=== PATIENT | female | born 2000 | race Caucasian/White ===

== ENCOUNTER → 2020-03-20 09:09 | Outpatient (BNVA) | payer OTHER, SELFPAY | PROVIDERS: Visit Provider Advanced Practice Midwife | DX: Z30.46 Encounter for surveillance of implantable subdermal contraceptive (principal) | CPT/HCPCS: 99212 ==

== ENCOUNTER 2020-05-20 15:19 | Outpatient (REF) | payer OTHER, SELFPAY | END 2020-05-20 15:20 | disposition home or self-care (01) | LOC: HO.LAB 15:19 | PROVIDERS: Visit Provider Internal Medicine | DX: Z20.828 Contact with and (suspected) exposure to other viral communicable diseases (principal) | CPT/HCPCS: 36415; C9803; U0003 ==

== ENCOUNTER 2021-02-12 09:36 | Outpatient (REF) | payer OTHER, SELFPAY ==
[2021-02-12 15:41] LABS: CT PCR NOT DETECTED (Not Detect.); NG PCR NOT DETECTED (Not Detect.)
[2021-02-13 09:30] LABS: BV Int Neg Control Negative (Negative); BV Int Pos Control Positive (Positive)
[2021-03-03 06:21] LABS: HPV 16 RNA NOT DETECTED (NOT DETECTED); HPV mRNA E6/E7 rflx Detected (Not Detected)
== END 2021-02-12 09:37 | disposition home or self-care (01) ==
LOC: HO.LAB 09:36
PROVIDERS: Visit Provider Advanced Practice Midwife
DX: Z01.419 Encounter for gynecological examination (general) (routine) without abnormal findings (principal); E66.9 Obesity, unspecified; Z68.38 Body mass index [BMI] 38.0-38.9, adult; Z20.2 Contact with and (suspected) exposure to infections with a predominantly sexual mode of transmission
CPT/HCPCS: 87480; 87491; 87510; 87591; 87624; 87625; 87660; 88142

== ENCOUNTER 2021-08-20 09:21 | Emergency (ER) | payer OTHER, SELFPAY ==
--- NOTE | ~2021-08-20 | XR_ITS ---
EXAMINATION: XR CHEST CLINICAL INFORMATION: Cough, shortness of breath and chest pain. COMPARISON: None TECHNIQUE: Frontal view of the chest was obtained. FINDINGS: No significant abnormality is noted involving the heart, lungs, mediastinum, bony thorax or soft tissues. XR/XR chest 1V IMPRESSION: No acute cardiopulmonary process.
[2021-08-20 09:37] VITALS: BP 121/87; PULSE 89; RESP 18; TEMP 36.7; O2SAT 99; BMI 38.0
[2021-08-20 10:42] LABS: COVID-19 Test Negative (Negative); IDNOW Serial# 16C4AD1C
[2021-08-20] MEDS: Ondansetron ODT 4 MG TAB.RAPDIS TRANSLINGU (10:46)
[2021-08-20 10:49] LABS: Appearance Urine HAZY; Color Urine YELLOW; Glucose Urine UA NEG (NEG); Leukocyte Esterase Urine NEG (NEG); Nitrite Urine NEG (NEG); Specific Gravity - Urine >= 1.030 (1.005-1.025); UACC Culture Trigger NO; Urine Blood 2+ (NEG); Urine Ketones 5 MG/DL (NEG); Urine Protein TRACE MG/DL (NEG-TRACE)
--- NOTE | 2021-08-20 11:00 | PC.NURSE ---
PT GIVEN PO CHALLENGE.
[2021-08-20 11:01] LABS: Mucus Urine 3+ /LPF; Squamous Epithelial Cell Urine 2+ /LPF
[2021-08-20 11:02] LABS: WBC Urine 0-2 /HPF (0-4)
[2021-08-20 11:04] LABS: UPreg QC Valid YES; Urine Pregnancy NEGATIVE (NEGATIVE)
[2021-08-20 11:13] LABS: IDNOW Serial# 55D5AD1C; Influenza A Positive (Negative); Influenza B2 Negative (Negative)
--- NOTE | 2021-08-20 11:17 | PC.NURSE ---
PT TOLERATED PO CHALLENGE, NO VOMITING AT THIS TIME.
--- NOTE | 2021-08-20 11:30 | ED_ITS ---
HPI - General Adult General Chief complaint: General Medical Stated complaint: lost voice Time Seen by Provider: 08/20/21 09:59 Source: patient Mode of arrival: ambulatory History of Present Illness HPI narrative: 20-year-old female with no significant past medical history presenting to the ED complaining of subjective fever, chills, nausea, vomiting, decreased p.o. intake, nonproductive cough, body aches/myalgias, sore throat x4 days. Admits the stomach bug has been going around her place of employment. Reports has been able to tolerate p.o. water however decreased food. Also reports chest discomfort when coughing, and mild SOB. Denies diarrhea, constipation, recent travel, abdominal pain, pedal edema. Has been taking OTC medications with relief Onset (ago): day(s) Related Data Home Medications Medication Instructions Recorded Confirmed etonogestrel 68 mg subdermal SUBDERMAL 03/20/20 implant Previous Rx's Medication Instructions Recorded metronidazole 500 mg tablet 500 mg PO BID 7 Days #14 tab 02/16/21 (Flagyl) fluticasone propionate 50 2 spray INTRANASAL DAILY #16 g 08/20/21 mcg/actuation nasal spray,suspension (Flonase Allergy Relief) ondansetron 4 mg disintegrating 4 mg PO Q8H PRN #10 tab 08/20/21 tablet Allergies Allergy/AdvReac Type Severity Reaction Status Date / Time No Known Allergies Allergy Verified 02/12/21 10:33 Review of Systems Review of Systems: Constitutional: +subj Fever, +Chills ENT/Mouth: No Ear Pain, + Nasal Congestion, No Sinus Pain, No Hoarseness, + sore throat, No Rhinorrhea, No Swallowing Difficulty Cardiovascular: + Chest Pain when couging, +mild SOB Respiratory: + Cough, No Sputum, No Wheezing Gastrointestinal: + Nausea, + Vomiting, No Diarrhea, No Constipation, No Abdominal pain Genitourinary: No Dysuria, No Urinary Frequency, No Hematuria, No Urgency, No Flank Pain Musculoskeletal: No joint pain, + Myalgias, No Joint Swelling Skin: No Skin Lesions, No rash Neuro: No Weakness, No Numbness, No Paresthesias Yes all other systems are reviewed and are negative PMFSH Past Medical History Attestation statement: The following information was validated with the patient. Medical History Obesity Family History Family History Maternal Grandmother History of breast cancer Social History Social History Alcohol intake: current Alcohol intake frequency: holidays/special occasions only Advance Directives: No Advance Directives Information Provided: No Patient : No Sexual orientation: Straight/Heterosexual Gender identity: Female Physical Exam ED Vital Signs: Vital Signs - 24 hr 08/20/21 09:37 Temperature 98.0 F Pulse Rate 89 Respiratory Rate 18 Blood Pressure 121/87 Pulse Oximetry 99 BMI result Body Mass Index 38.0 Const General: cooperative, healthy appearing, well developed, alert and awake Orientation/consciousness: patient oriented x3 Limitations: no limitations HENMT Head: Yes normal to inspection Ears: hearing grossly normal bilaterally, external ears normal and TM's normal bilaterally General nose exam: Normal external nose present Face and sinus: Yes normal facial exam Throat: Yes posterior oropharynx normal, Yes tonsils normal, Yes uvula midline, No peritonsillar mass and No uvula laterally displaced Eyes General: appearance normal, both eyes and all related structures EOM: EOMs intact bilaterally Neck Neck: Yes normal visual inspection and Yes no meningeal signs Resp Effort & Inspection: normal respiratory effort and no respiratory distress Auscultation: clear to auscultation bilaterally, no rales, no rhonchi and no wheezes Cardio Rate: regular rate Heart sounds: S1 normal heart sound present and S2 normal heart sound present GI Inspection: Yes normal to inspection Palpation (GI): Soft to palpation, nontender, no guarding and not rigid General: Yes no CVA tenderness Back/Spine/Pelvis Back: no CVA tenderness Skin Rashes: no rashes Wounds: no wounds Neuro General: patient oriented x3 and no meningeal signs Gait exam (Neuro): Normal gait present Extrem General: Yes normal to inspection and Yes no pedal edema Course Course Course Narrative: -1130--patient tolerating p.o. Kalina Willa without nausea or vomiting. Influenza A positive. COVID-19 negative. CXR unremarkable. UA with RBCs/not infected, discussed these results with patient and need close follow-up with PCP and repeat UA Medical Decision Making MDM Narrative Medical decision making narrative: 20-year-old female with no significant past medical history presenting to the ED complaining of subjective fever, chills, nausea, vomiting, decreased p.o. intake, nonproductive cough, body aches/myalgias, sore throat x4 days. On exam vital signs stable, NAD/nontoxic-appearing, exam nonfocal parents concern for viral syndrome including COVID-19/influenza versus norovirus/gastroenteritis. Low concern for ACS/PE or pneumonia Plan: COVID-19 testing/influenza testing, CXR, sublingual Zofran, p.o. challenge Medical Records Medical records reviewed: Yes I reviewed the patient's medical records. Lab Data Lab results reviewed: Yes I reviewed the patient's lab results. Labs: Lab Results 08/20/21 08/20/21 08/20/21 Range/Units 10:09 10:09 10:32 Urine Color YELLOW Urine Appearance HAZY Urine pH 6.0 (5.0-8.0) Ur Specific [place] >= 1.030 H (1.005-1.025) Urine Protein TRACE (NEG-TRACE) MG/DL Urine Glucose (UA) NEG (NEG) MG/DL Urine Ketones 5 (NEG) MG/DL Urine Blood 2+ H (NEG) Urine Nitrite NEG (NEG) Ur Leukocyte Esterase NEG (NEG) Urine RBC 10-14 H (0) /HPF Urine WBC 0-2 (0-4) /HPF Ur Squamous Epith Cells 2+ /LPF Urine Bacteria NONE /LPF Urine Mucus 3+ /LPF Urine Test (NEGATIVE) COVID-19 (JAY) Negative (Negative) COVID-19 Clin Com See Note Influenza Type A (RHYS) Positive A (Negative) Influenza Type B (RHYS) Negative (Negative) Influenza A & B Note See Note 08/20/21 Range/Units 10:32 Urine Color Urine Appearance Urine pH (5.0-8.0) Ur Specific [place] (1.005-1.025) Urine Protein (NEG-TRACE) MG/DL Urine Glucose (UA) (NEG) MG/DL Urine Ketones (NEG) MG/DL Urine Blood (NEG) Urine Nitrite (NEG) Ur Leukocyte Esterase (NEG) Urine RBC (0) /HPF Urine WBC (0-4) /HPF Ur Squamous Epith Cells /LPF Urine Bacteria /LPF Urine Mucus /LPF Urine Test NEGATIVE (NEGATIVE) COVID-19 (JAY) (Negative) COVID-19 Clin Com Influenza Type A (RHYS) (Negative) Influenza Type B (RHYS) (Negative) Influenza A & B Note Discharge Plan Discharge Clinical Impression: Influenza A Patient Disposition: Home, Self-Care Instructions: Influenza (DC) Additional Instructions: You have the flu. You are contagious, please wash her hands and wear mask. Flonase is a nasal decongestion, take as needed. Zofran as antinausea medication, take as needed for nausea/vomiting. In addition take Tylenol and Motrin for body aches/fever and pain. Your urine had blood in it, please follow-up with her primary care doctor for repeat urine Your chest x-ray was unremarkable. You tested negative for COVID-19. If her symptoms persist or worsen, your unable to eat or drink, develops fever unresolved with medications please return to the emergency department Prescriptions: New ondansetron 4 mg tablet,disintegrating 4 mg PO Q8H PRN (Reason: nausea and vomiting) Qty: 10 0RF fluticasone propionate [Flonase Allergy Relief] 50 mcg/actuation spray,suspension 2 spray intranasal DAILY Qty: 16 0RF Rx Instructions: administer into each nostril No Action metronidazole [Flagyl] 500 mg tablet 500 mg PO BID 7 Days Qty: 14 0RF Rx Instructions: Take with food, Avoid alcohol and vinegar products Nexplanon 68 mg implant subdermal 0RF Referrals: Obdulia Tabares MD [Primary Care Provider] - 1 week Stand Alone Forms: Work/School Release
== END 2021-08-20 11:57 | disposition home or self-care (01) ==
PROVIDERS: Physician Assistant; Emergency Provider Emergency Medicine Emergency Medical Services; PCP Pediatrics
DX: J11.1 Influenza due to unidentified influenza virus with other respiratory manifestations (principal); Z20.822 Contact with and (suspected) exposure to COVID-19; R50.9 Fever, unspecified
CPT/HCPCS: 71045; 81001; 81025; 87502; 87635; 99283

== ENCOUNTER → 2021-09-07 15:14 | Outpatient (BNVA) | payer OTHER, SELFPAY | PROVIDERS: PCP Pediatrics; Visit Provider Advanced Practice Midwife | DX: Z30.40 Encounter for surveillance of contraceptives, unspecified (principal) | CPT/HCPCS: 99212 ==

== ENCOUNTER → 2021-11-04 15:37 | Outpatient (BNVA) | payer OTHER, SELFPAY | PROVIDERS: PCP Pediatrics; Visit Provider Advanced Practice Midwife | DX: Z30.46 Encounter for surveillance of implantable subdermal contraceptive (principal) | CPT/HCPCS: 11982 ==

== ENCOUNTER 2021-12-30 15:31 | Outpatient (REF) | payer MEDICAID, SELFPAY ==
[2021-12-31 06:41] LABS: CT PCR NOT DETECTED (Not Detect.); NG PCR NOT DETECTED (Not Detect.)
[2021-12-31 09:42] LABS: BV Int Neg Control Negative (Negative)
[2021-12-31 09:43] LABS: BV Int Pos Control Positive (Positive)
== END 2021-12-30 15:32 | disposition home or self-care (01) ==
LOC: HO.LAB 15:31
PROVIDERS: Visit Provider Advanced Practice Midwife
DX: O20.0 Threatened abortion (principal); O20.9 Hemorrhage in early pregnancy, unspecified
CPT/HCPCS: 36415; 84702; 87480; 87491; 87510; 87591; 87660; 99212

== ENCOUNTER 2021-12-30 15:38 | Outpatient (REF) | payer MEDICAID, SELFPAY ==
[2021-12-30 17:32] LABS: HCG Quantitative 2055 mIU/mL
== END 2021-12-30 15:39 | disposition home or self-care (01) ==
LOC: HO.LAB 15:38
PROVIDERS: PCP Family Medicine; Visit Provider Advanced Practice Midwife
DX: O20.0 Threatened abortion (principal); O20.9 Hemorrhage in early pregnancy, unspecified
CPT/HCPCS: 36415; 84702

== ENCOUNTER 2022-01-06 09:55 | Emergency (ER) | payer MEDICAID, SELFPAY ==
[2022-01-06 10:04] VITALS: BP 129/77; PULSE 86; RESP 19; TEMP 36.6; O2SAT 99; BMI 38.4
[2022-01-06 12:36] LABS: Appearance Urine Cloudy; Color Urine Yellow; Glucose Urine UA Negative (Negative); Leukocyte Esterase Urine Trace (Negative); Nitrite Urine Negative (Negative); Specific Gravity - Urine 1.025 (1.005-1.025); Urine Blood Negative (Negative); Urine Ketones Trace mg/dL (Negative); Urine Protein Trace mg/dL (Neg-Trace)
[2022-01-06 12:41] LABS: Bacteria Urine 4+ (None Seen); Hyaline Casts Urine 0-2 /LPF (0-2); WBC Urine 0-5 /HPF (0-5)
[2022-01-06 12:44] LABS: Anion Gap 12 (12-20); Blood Urea Nitrogen 8 mg/dL (9-16); Calcium 9.7 mg/dL (8.4-10.2); Carbon Dioxide 25 mmol/L (22-29); Chloride 104 mmol/L (96-108); Creatinine Clr Calc Pharmacy 156.7; Estimated Glomerular Filt Rate > 60; Glucose Random 78 mg/dL (60-115); Potassium 4.3 mmol/L (3.3-5.1); Sodium 137 mmol/L (135-145)
[2022-01-06 12:52] LABS: HCG Quantitative 11060 mIU/mL
[2022-01-06 15:17] VITALS: BP 118/60; PULSE 79; RESP 18; TEMP 37; O2SAT 99
--- NOTE | 2022-01-06 15:18 | ECG_ITS ---
Test Reason : DIZZINESS Blood Pressure : / mmHG Vent. Rate : 069 BPM Atrial Rate : 069 BPM P-R Int : 150 ms QRS Dur : 074 ms QT Int : 384 ms P-R-T Axes : 021 028 026 degrees QTc Int : 411 ms Normal sinus rhythm with sinus arrhythmia Normal ECG When compared with ECG of 01-AUG-2012 20:23, PREVIOUS ECG IS PRESENT No significant change was found Referred By: Generic ED Physician Electronically Signed By:TERRANCE SHETTY
--- NOTE | 2022-01-06 15:18 | PC.NURSE ---
worsening symptoms reports to pt experience person while waiting for bed. EKG ordered per protocol. POC to be checked.
[2022-01-06 15:28] LABS: Glucose, Whole Blood 102 mg/dL (60-115)
--- NOTE | 2022-01-06 15:57 | PC.NURSE ---
Late entry: POC 102
[2022-01-06 16:29] LABS: MANUAL DIFF FLAG NO
[2022-01-06 16:31] LABS: Basophils Absolute Auto 0.1 X10*3/uL (0.0-0.2); Basophils Percent Auto 0.6 % (0-2); Eosinophils Absolute Auto 0.2 X10*3/uL (0.0-0.4); Eosinophils Percent Auto 2.2 % (0-4); Hematocrit 36.4 % (37.0-47.0); Hemoglobin 12.4 g/dl (12.0-16.0); Imm Gran Abs Auto 0.02 X10*3/uL (0.00-0.03); Imm Gran Pct Auto 0.2 % (0.0-0.4); Lymphocytes Absolute Auto 1.9 X10*3/uL (1.2-4.9); Lymphocytes Percent Auto 21.8 % (20-40); Mean Corpuscular HGB Conc 34.1 g/dl (31.0-35.0); Mean Corpuscular Hemoglobin 30.3 pg (27.0-33.0); Mean Platelet Volume 9.6 fL (9.4-12.3); Monocytes Absolute Auto 0.9 X10*3/uL (0.1-1.2); Monocytes Percent Auto 10.6 % (2-11); Neutrophils Absolute Auto 5.7 x10*3/uL (2.0-8.3); Neutrophils Percent Auto 64.6 % (45-73); Platelet Count 374 X10*3/uL (160-400); Red Blood Count 4.09 X10*6/uL (4.20-5.50); Red Cell Distribution Width 11.9 % (11.0-16.0); White Blood Count 8.8 X10*3/uL (4.8-10.8)
== END 2022-01-06 21:03 | disposition left against medical advice (07) ==
PROVIDERS: Emergency Provider Emergency Medicine; PCP Family Medicine
DX: O21.0 Mild hyperemesis gravidarum (principal); Z3A.08 8 weeks gestation of pregnancy
CPT/HCPCS: 36415; 80048; 81001; 82947; 84702; 85025; 93005; 99283

== ENCOUNTER 2022-01-15 15:04 | Outpatient (REF) | payer MEDICAID, SELFPAY ==
--- NOTE | ~2022-01-15 | US_ITS ---
EXAMINATION: US OBSTETRICAL ULTRASOUND CLINICAL INFORMATION: Irregular menstruation. COMPARISON: None. LMP: November 09, 2021.. Gestational age by maternal dates is 9 weeks 4 days. Estimated date of delivery by maternal dates is August 16, 2022. TECHNIQUE: Ultrasound of the maternal pelvis is performed using transabdominal and transvaginal transducers. Transvaginal imaging is performed due to inadequate visualization transabdominally. M-mode Doppler is also performed. FINDINGS: There is a single intrauterine gestational sac with visible yolk sac, embryo/fetus, and cardiac activity. There is a suggestion of a hypoechoic, crescentic subchorionic bleed measuring 1.9 x 1.8 x 0.6 cm. HR: 156 beats per minute. CRL (crown rump length): 1.3 cm (7 weeks 4 days +/- 4 days). DORETHA (estimated date of delivery): August 30, 2022 +/- 4 days. MATERNAL ADNEXA: The right maternal ovary measures 2.9 x 2.8 x 1.9 cm. The left maternal ovary measures 3.1 x 2.0 x 1.7 cm. No significant maternal adnexal mass is identified. Trace free pelvic fluid, nonspecific. US/US OB pelvic and transvaginal IMPRESSION: 1. Single intrauterine gestation with ultrasound gestational age of 7 weeks 0 days +/- 4 days. 2. Estimated date of delivery is August 30, 2022 +/- 4 days. 3. Suspect 1.9 x 1.8 x 0.6 cm subchorionic bleed
== END 2022-01-15 15:05 | disposition home or self-care (01) ==
LOC: HO.US 15:04
PROVIDERS: Visit Provider Advanced Practice Midwife
DX: Z34.91 Encounter for supervision of normal pregnancy, unspecified, first trimester (principal); Z3A.09 9 weeks gestation of pregnancy
CPT/HCPCS: 76801; 76817

== ENCOUNTER 2022-02-03 16:18 | Outpatient (REF) | payer MEDICAID, SELFPAY ==
--- NOTE | ~2022-02-03 | US_ITS ---
EXAMINATION: US OBSTETRICAL ULTRASOUND CLINICAL INFORMATION: Hemorrhage in early COMPARISON: Previous OB ultrasound 01/15/2022. LMP: 10/20/2021. TECHNIQUE: Transabdominal and transvaginal first trimester OB ultrasound FINDINGS: There is a single intrauterine gestational sac with visible yolk sac, embryo/fetus, and cardiac activity. There is hypoechoic area adjacent to the gestational sac questionable for subchorionic hemorrhage. This measures 1.4 x 0.3 x 0.5 cm. This is decreased from 1.9 x 0.6 x 1.8 cm on 01/15/2022 exam. HR: 156 beats per minute. CRL (crown rump length): 3.4 cm (10 weeks 2 days +/- 4 days). DORETHA (estimated date of delivery): 08/30/2022 +/- 4 days. MATERNAL ADNEXA: The right maternal ovary measures 2.6 x 2.3 x 1.9 cm. small 1.7 x 1.6 x 1.4 cm cyst. The left maternal ovary measures 2.5 x 2.1 x 2 cm. small 1.5 x 1.3 x 2.1 cm cyst. Small amount of fluid in the left pelvis. US/US OB <= 14 weeks fetus IMPRESSION: 1. Single intrauterine gestation with ultrasound gestational age of 10 weeks 2 days +/- 4 days. 2. Estimated date of delivery is 08/30/2022 +/- 4 days. 3. interval decrease in hypoechoic area adjacent to the gestational sac questionable for subchorionic hemorrhage compared to previous exam now measuring 1.4 x 0.3 x 0.5 cm.
== END 2022-02-03 16:19 | disposition home or self-care (01) ==
LOC: HO.US 16:18
PROVIDERS: PCP Family Medicine; Visit Provider Advanced Practice Midwife
DX: O20.9 Hemorrhage in early pregnancy, unspecified (principal)
CPT/HCPCS: 76801; 86850; 86900; 99212

== ENCOUNTER 2022-02-17 16:26 | Outpatient (REF) | payer MEDICAID, SELFPAY | END 2022-02-17 16:27 | disposition home or self-care (01) | LOC: HO.LNP 16:26 | PROVIDERS: Visit Provider Surgery | DX: L05.01 Pilonidal cyst with abscess (principal) | CPT/HCPCS: 10080; 87070; 87205; 99202 ==

== ENCOUNTER → 2022-02-19 13:26 | Outpatient (BNVA) | payer MEDICAID, SELFPAY | PROVIDERS: PCP Emergency Medicine; Visit Provider Advanced Practice Midwife | DX: O99.211 Obesity complicating pregnancy, first trimester (principal); E66.9 Obesity, unspecified; O99.711 Diseases of the skin and subcutaneous tissue complicating pregnancy, first trimester; L05.01 Pilonidal cyst with abscess; Z3A.12 12 weeks gestation of pregnancy | CPT/HCPCS: 99212 ==

== ENCOUNTER 2022-02-22 11:33 | Outpatient (REF) | payer MEDICAID, SELFPAY ==
[2022-02-22 13:45] LABS: Glucose 1 Hour PP 50gm Dose 122 mg/dL (60-140)
== END 2022-02-22 11:34 | disposition home or self-care (01) ==
LOC: HO.LAB 11:33
PROVIDERS: PCP Family Medicine; Visit Provider Advanced Practice Midwife
DX: O99.210 Obesity complicating pregnancy, unspecified trimester (principal)
CPT/HCPCS: 36415; 82950

== ENCOUNTER 2022-02-25 15:13 | Outpatient (REF) | payer MEDICAID, SELFPAY ==
[2022-03-02 11:42] LABS: HPV mRNA E6/E7 rflx Not Detected (Not Detected)
== END 2022-02-25 15:14 | disposition home or self-care (01) ==
LOC: HO.LNP 15:13
PROVIDERS: Visit Provider Advanced Practice Midwife
DX: O99.211 Obesity complicating pregnancy, first trimester (principal); Z68.36 Body mass index [BMI] 36.0-36.9, adult; Z3A.12 12 weeks gestation of pregnancy; Z83.3 Family history of diabetes mellitus; Z13.31 Encounter for screening for depression
CPT/HCPCS: 87624; 88142; 99212

== ENCOUNTER → 2022-03-26 15:05 | Outpatient (BNVA) | payer MEDICAID, SELFPAY | PROVIDERS: PCP Family Medicine; Visit Provider Advanced Practice Midwife | DX: Z34.02 Encounter for supervision of normal first pregnancy, second trimester (principal); Z3A.17 17 weeks gestation of pregnancy | CPT/HCPCS: 99212 ==

== ENCOUNTER → 2022-04-30 09:14 | Outpatient (BNVA) | payer MEDICAID, SELFPAY | PROVIDERS: PCP Family Medicine; Visit Provider Advanced Practice Midwife | DX: O99.212 Obesity complicating pregnancy, second trimester (principal); Z3A.22 22 weeks gestation of pregnancy | CPT/HCPCS: 81003; 99212 ==

== ENCOUNTER 2022-05-25 10:01 | Outpatient (REF) | payer OTHER, SELFPAY ==
[2022-05-25 11:49] LABS: Hematocrit 34.8 % (37.0-47.0); Hemoglobin 11.7 g/dl (12.0-16.0); Mean Corpuscular HGB Conc 33.6 g/dl (31.0-35.0); Mean Corpuscular Hemoglobin 30.5 pg (27.0-33.0); Mean Corpuscular Volume 90.9 fL (80.0-98.0); Mean Platelet Volume 9.9 fL (9.4-12.3); Platelet Count 346 X10*3/uL (160-400); Red Blood Count 3.83 X10*6/uL (4.20-5.50); Red Cell Distribution Width 12.1 % (11.0-16.0)
[2022-05-25 12:21] LABS: Glucose 1 Hour PP 50gm Dose 90 mg/dL (60-140)
[2022-05-26 06:45] LABS: Syphilis Screen Nonreactive (Nonreactive)
== END 2022-05-25 10:02 | disposition home or self-care (01) ==
LOC: HO.LAB 10:01
PROVIDERS: PCP Family Medicine; Visit Provider Obstetrics & Gynecology
DX: Z34.92 Encounter for supervision of normal pregnancy, unspecified, second trimester (principal)
CPT/HCPCS: 36415; 82950; 85027; 86780

== ENCOUNTER → 2022-05-31 15:14 | Outpatient (BNVA) | payer OTHER, SELFPAY | PROVIDERS: PCP Family Medicine; Visit Provider Advanced Practice Midwife | DX: Z34.92 Encounter for supervision of normal pregnancy, unspecified, second trimester (principal); Z3A.27 27 weeks gestation of pregnancy | CPT/HCPCS: 81003; 99212 ==

== ENCOUNTER → 2022-09-09 10:46 | Outpatient (BNVA) | payer OTHER, SELFPAY | PROVIDERS: PCP Family Medicine; Visit Provider Advanced Practice Midwife | DX: Z39.2 Encounter for routine postpartum follow-up (principal) | CPT/HCPCS: 99212 ==

== ENCOUNTER → 2022-09-17 10:56 | Outpatient (BNVA) | payer OTHER, SELFPAY | PROVIDERS: PCP Family Medicine; Visit Provider Advanced Practice Midwife | DX: O99.893 Other specified diseases and conditions complicating puerperium (principal) | CPT/HCPCS: 99212 ==

== ENCOUNTER 2022-11-02 15:17 | Outpatient (REF) | payer OTHER, MEDICAID, SELFPAY | END 2022-11-02 15:18 | disposition home or self-care (01) | LOC: HO.LNP 15:17 | PROVIDERS: PCP Family Medicine; Visit Provider Advanced Practice Midwife | DX: Z39.2 Encounter for routine postpartum follow-up (principal); Z30.09 Encounter for other general counseling and advice on contraception | CPT/HCPCS: 88142; 99212 ==